=== PATIENT | male | born 1990 | race Caucasian/White ===

== ENCOUNTER 2016-07-08 11:32 | Day surgery (SDC) | payer OTHER ==
[~2016-07-08] VITALS: Ht 172.7 cm; Wt 81.0 kg
[2016-07-08] VITALS (9 sets, daily range): BP systolic 119–135; BP diastolic 67–76; PULSE 53–96; RESP 10–15; O2SAT 96–100
[~2016-07-08 11:32] MED LIST: CeFAZolin Inj 2 GM in IV Premix 1 EACH IV ONE; Lactated Ringer's 1,000 ML IV ONE
[2016-07-08] MEDS ORDERED: fentaNYL-PF 50 mCg/mL 2 mL Inj ONE (11:33)
[2016-07-08] MEDS ORDERED: Lactated Ringer's 1,000 ML IV ONE (12:09)
--- NOTE | 2016-07-08 12:23 | PCM.HPANE ---
Patient Data Surgeon Admitting Provider: Attending Provider:Alli Oden DO Primary Care Physician:Clint Other Provider:Chacorta Nieto Anesthesia Reason for Visit Right 5TH Metacarpal Shaft Fracture Ht/WT & BMI Height (Feet): 5 Height (Inches): 8 Weight (Kilograms): 81 Body Mass Index 27.00 Allergies Coded Allergies: No Known Allergies (Unverified , 07/07/16) Past Anesthesia History Anesthesia History: Denies:: Abnormal Airway, Anesthesia Reactions (no prior surgery), Difficult Intubation, Fam Anesthesia Reaction Diabetes History Hx Diabetes?: No MRSA MRSA: No Medications Hypertension Medication: No Home Meds Incl Beta Lexie: No No Active Prescriptions or Reported Meds History HEENT History: Denies:: Abnormal Airway Difficult Intubation Dysphagia Hearing Problem Sinus Problem TMJ Cardiovascular History: Denies:: AICD Abdominal Aortic Aneurism Atrial Fibrillation Edema Heart Murmur Hypertension Irregular Heartbeat Pacemaker Peripheral Vascular Rheumatic Fever Hx of Respiratory Problem?: No Respiratory History: Denies:: Asthma COPD Emphysema Oxygen Administration Pneumonia Tuberculosis Use of C-PAP Machine Hx Neurologic Problems?: No Neurological History: Denies:: CVA Dementia Dizziness Headaches Multiple Sclerosis Parkinson's Disease Seizures TIA Hx of GI Problems?: No Gastrointestinal History: Denies:: Cirrhosis Gall Bladder Disease Gastroesphageal Reflux Gastrointestinal Bleeding Heartburn Hepatitis Hiatal Hernia Liver Disease Rectal Bleeding Hx of Problems?: No Genitourinary History: Denies:: Kidney Stones Urinary Tract Infection Male Hx: Denies:: Prostate Problems Skin History: Denies:: History Skin Disorders? Pressure Ulcers Hx Musculoskeletal Problems?: Yes Musculoskeletal History: Positive for:: Musculoskeletal Trauma (right fifth metacarpal fx current admission problem) Denies:: Fibromyalgia Joint Replacement Myasthenia Gravis Hx of Psycho/Social Problems?: No Psycho Social History: Denies:: Anxiety Hx Depression Hx Surgeries?: No (none) Hx Any Other Health Problems?: No Other History: Denies:: Cancer Thyroid Disease History Blood Transfusions: Positive for:: Accept Blood Products? Denies:: Blood Transfusions Hx Diabetes: No Hx Alcohol Use: YesAlcoholic Drinks Per Day: a few drinks every other weekHx Substance Use: NoHave You Smoked inLast 12 mo: No Stop/Bang S-Snoring: Do You Snore Loudly: No T-Tired: feel tired, fatigued: No O-Obsered: Observed not breath: No P-Blood Pressure: treated: No B- Body Mass Index > 35 kg/m2: No A- Age over 50: No N- Neck Large Circumference: No G- Gender Male: Yes RAIN Total Score: 1 Risk Assessment Category Category 1A: Patient has history of documented sleep apnea, and HAS NOT received any narcotic, sedative or anesthesia administration during this stay. Category 1B: Patient has history of documented sleep apnea, and HAS received any narcotic , sedative or anesthesia administration during this stay Category 2: Patient has SUSPECTED Obstructive Sleep Apnea, and HAS received any narcotic , sedative or anesthesia administration during this stay. Category 3: Patient has SUSPECTED Obstructive Sleep Apnea and HAS NOT received narcotic, sedative or anesthesia administration during this stay. Category 4: Outpatient in Procedural Areas with known sleep apnea or who screen positive for High Risk via the STOP/BANG questionnaire. Exam Exam Vital Signs Vital Signs Date Time Temp Pulse Resp B/P Pulse Ox O2 Delivery O2 Flow Rate FiO2 07/08/16 12:13 36.6 80 14 122/72 100 Room Air General Appearance: Alert, Oriented X3, Cooperative, Moderate Distress HEENT/AIRWAY: MP 2, Neck Movement (from), Mouth Opening (wnl) Lungs: Clear to Auscultation Heart: Exam Unremarkable Meds/Labs/Diagnostics Admission Meds Current Medications Lactated Ringer's (Lr) 1,000 ml @ ud STK-MED ONCE IV Last administered on 07/08t 12:09; Start 07/08/16 at 12:09; Stop 07/08/16 at 12:10; Status DC Plan Impression Patient chart reviewed, patient interviewed and anesthestic plan with risks, benefits, and alternatives discussed, and informed consent obtained. NPO Status: confirmed before mn ASA Physical Status: ASA1 Normal Healthy Anesthetic Plan: GA Bene/Risks/Altern/Consents: Yes HP Complete Prior to Induction: Yes Other PT insists on GA vs Local/sedation/block. Memo Ann MD Jul 08, 2016 12:23
[2016-07-08] MEDS ORDERED: fentaNYL-PF 50 mCg/mL 2 mL Inj IVPUSH PRN ×2 (12:25→13:20)
[2016-07-08] MEDS ORDERED: LORazepam 1 mg Tablet PO PRN (12:25)
[2016-07-08] MEDS ORDERED: CeFAZolin Inj 2 gm / 50mL D5W IV ONE (12:46)
[2016-07-08] MEDS ORDERED: Lactated Ringer's 500 ML IV PRN (13:20)
[2016-07-08] MEDS ORDERED: Phenylephrine 10,000 mCg/mL Inj IVPUSH PRN (13:20)
[2016-07-08] MEDS ORDERED: Ondansetron 2 mg/mL 2 mL Inj IVPUSH PRN (13:20)
[2016-07-08] MEDS ORDERED: HYDROmorphone 1 mg/mL Inj IVPUSH PRN (13:20)
[2016-07-08] MEDS ORDERED: EPHEDrine Sulfate 50 mg/mL Inj IVPUSH PRN (13:20)
[2016-07-08] MEDS ORDERED: Labetalol 5 mg/mL 4 mL Inj IV PRN (13:20)
[2016-07-08] MEDS ORDERED: Lactated Ringer's 1,000 ML IV SCH (13:20)
[2016-07-08] MEDS ORDERED: Dexamethasone 4 mg/mL Inj IVPUSH PRN (13:20)
[2016-07-08] MEDS ORDERED: Atropine 0.4 mg/mL Inj IVPUSH PRN (13:20)
[2016-07-08] MEDS ORDERED: hydrALAZINE 20 mg/mL Inj IVPUSH PRN (13:20)
[2016-07-08] MEDS ORDERED: HYDROcodone-APAP 5-325 mg Tablet PO PRN (13:30)
[2016-07-08] MEDS ORDERED: Lidocaine 1%-Epi 1:100,000 20 mL Inj INFILTRATE ONE (13:41)
--- NOTE | 2016-07-08 14:07 | PCM.ANEP1 ---
Post Anesthesia Phase 1 PACU Phase 1 Assessment Vital Signs Vital Signs Date Time Temp Pulse Resp B/P Pulse Ox O2 Delivery O2 Flow Rate FiO2 07/08/16 12:13 36.6 80 14 122/72 100 Room Air Anesthetic Administered: GA Level of Alertness: Awake, talking ELAINE's with Equal Strength: Yes Pain: No Nausea or Vomiting: No Oxygen Delivery: Room Air Lungs: Normal Air Movement Memo Ann MD Jul 08, 2016 14:07
--- NOTE | 2016-07-09 09:44 | PCM.ANEP2 ---
Post Anesthesia Evaluation ASA/CMS Post Anesthesia VS in Patient's Normal Range?: Yes Resp Stable; Airway Patent?: Yes CV Function & Hydration Stable: Yes Mental Status Recovered?: Yes Pain control Satisfactory?: Yes N/V Control Satisfactory?: Yes Memo Ann MD Jul 09, 2016 09:44
--- NOTE | 2016-07-09 17:34 | OP ---
[address] [address] OPERATIVE REPORT PATIENT: ALPHONSO AMOR : 1990 MR#: [id number] ADMIT: 07/08/2016 JOB ID: [id number] DATE OF SURGERY: 07/08/2016 PREOPERATIVE DIAGNOSIS(ES): Right 5th metacarpal shaft fracture. POSTOPERATIVE DIAGNOSIS(ES): Right 5th metacarpal shaft fracture. PROCEDURE: Closed reduction, percutaneous pinning of the right 5th metacarpal shaft fracture. SURGEON: Alli Oden D.O. ANESTHESIA: General. BRIEF HISTORY: He is a pleasant 26-year-old male that fell down the stairs and sustained a 5th metacarpal shaft fracture. He presented to my office with approximately 40 degrees of volar angulation. Discussed with the patient the risks, benefits, alternatives, and indications to proceed with a closed reduction and percutaneous pinning versus open reduction and internal fixation of the 5th metacarpal shaft fracture, as the patient declined having a closed reduction performed in the office with casting. He understood the risks include, but are not limited to, neurovascular injury, tendon injury, infection, failure of fixation, stiffness, and persistent pain, all of which may require further intervention. The patient had all questions answered. Consent was signed and placed in the chart. PROCEDURE IN DETAIL: The patient was brought to the operative suite and placed supine on the operating table. Surgical time-out was performed. Everyone in the room was in agreement. After appropriate anesthesia was obtained, a right upper arm tourniquet was applied and the right upper extremity was then prepped and draped in a sterile fashion. The patient's fracture was manually reduced with volar directed force along the apex of the fracture and then dorsally directed force to the 5th metacarpal head. Excellent reduction was achieved. This was followed by application of three 0.045 inch K-wires in a transmetacarpal fashion across the 5th and into the 4th metacarpal for fixation. Excellent fixation was achieved. With passive wrist extension tenodesis, no malrotation noted to the small finger. Multiple views of fluoroscopy were utilized to verify anatomic reduction. The K-wires were then bent outside the skin and cut short. The patient was placed in a well-padded well-molded ulnar gutter splint. ESTIMATED BLOOD LOSS: Less than 1 mL. COMPLICATIONS: None. DISPOSITION: The patient tolerated the procedure well. Anesthesia was reversed. The patient was transferred to the PACU for recovery. IMPLANTS: Three 0.045 inch K-wires. POSTOPERATIVE PLAN: The patient will follow up in the office in two weeks. I will transition the patient into an ulnar gutter cast at that time for two additional weeks prior to removing the pins in the office at four weeks postop and having him initiate range of motion.
== END 2016-07-08 23:59 | disposition home or self-care (01) ==
LOC: SAS 11:32
PROVIDERS: ATTEND Orthopaedic Surgery
DX: S62.326A Displaced fracture of shaft of fifth metacarpal bone, right hand, initial encounter for closed fracture (principal); W10.9XXA Fall (on) (from) unspecified stairs and steps, initial encounter; Y93.01 Activity, walking, marching and hiking; Y92.9 Unspecified place or not applicable; Y99.9 Unspecified external cause status
CPT/HCPCS: 26608; J0690; J2250; J3010; J7120